=== PATIENT | female | born 1995 | race Caucasian/White ===

== ENCOUNTER → 2020-02-27 | Outpatient (CLI) | payer BC ==
[~2020-02-27] MED LIST: BCP
== END ==
LOC: COL.LAB 13:28
DX: Z20.828 Contact with and (suspected) exposure to other viral communicable diseases (principal)

== ENCOUNTER 2023-08-18 13:44 | Inpatient (IN) | payer OTHER ==
[2023-08-18] VITALS (19 sets, daily range): BP systolic 85–141; BP diastolic 42–102; PULSE 82–102; TEMP 97.9–98.4
[~2023-08-18] VITALS: Ht 162.6 cm; Wt 115.5 kg
--- NOTE | 2023-08-18 13:50 | NUR ---
PATIENT AMBULATORY TO UNIT WITH SIGNIFICANT OTHER AND MOTHER, PATIENT ORIENTED TO LABOR ROOM 4 AND ASSISTED INTO A GOWN. EFM ADN TOCO PLACED AND TRACING. PATIENT REPORTS LEAKING OF FLUID SINCE 1213, MILD CONTRACTIONS, NO VAGINAL BLEEDING AND GOOD MOVEMENT. ASSESSMENTS COMPLETE
[2023-08-18] MEDS ORDERED: LR 1,000 ML IV PRN ×2 (14:00→17:15)
[2023-08-18] MEDS ORDERED: PRENATAL (14:20)
[2023-08-18] MEDS ORDERED: UROMAG140 MG (14:20)
[2023-08-18] MEDS ORDERED: MACROBID 1100 MG/CAP PO (14:21)
[2023-08-18] MEDS ORDERED: SYNTHROID0.175 MG PO (14:21)
[2023-08-18] MEDS ORDERED: LR 1,000 ML IV SCH (14:45)
[2023-08-18] MEDS ORDERED: ceFAZolin 2 G in Water For Injection,Sterile 20 ML IV ONE (14:45)
[2023-08-18] MEDS ORDERED: Azithromycin 500 MG in NS 250 ML IV ONE (14:45)
--- NOTE | 2023-08-18 15:00 | NUR ---
TO BEDSIDE TO DISCUSS PLAN OF CARE WITH PATIENT, PATIENT AGREES. CONSENTS SIGNED AFTER PATIENT DISCUSSION WITH
[2023-08-18 15:12] LABS: BASO % 0.4 % (0.0-2.0); EOS # 0.1 K/mm3 (0.0-0.7); EOS % 1.1 % (0.0-4.0); GRAN # 8.3 K/mm3 (1.4-6.5); GRAN % 77.1 % (42.2-75.2); HEMOGLOBIN 11.7 g/dl (12.5-16.0); LYMPH # 1.5 K/mm3 (1.2-3.4); LYMPH % 13.5 % (20.0-51.0); MEAN CELL VOLUME 91 fl (80.0-100.0); MEAN CORPUSCULAR HEMOGLOBIN 30 pg (27-31); MEAN CORPUSCULAR HGB CONC 33 g/dl (33.0-37.0); MEAN PLATELET VOLUME 10.5 fl (7.4-10.4); MONO # 0.8 K/mm3 (0.1-0.6); MONO % 7.2 % (1.7-9.3); PLATELET COUNT 309 K/mm3 (130-400); RED BLOOD COUNT 3.94 M/mm3 (4.10-5.30); REDCELL DISTRIBUTION WIDTH-CV 13.9 % (11.5-14.5)
[2023-08-18] MEDS ORDERED: NS 30 ML IV ONE (15:38)
[2023-08-18] MEDS ORDERED: Oxytocin 10 UNITS/ML VIAL ONE (15:38)
[2023-08-18] MEDS ORDERED: Ketorolac 30 MG/ML VIAL ONE (15:38)
[2023-08-18] MEDS ORDERED: Ondansetron 4 MG/2 ML VIAL ONE (15:38)
[2023-08-18] MEDS ORDERED: dexAMETHasone 10 MG/ML VIAL ONE (15:38)
[2023-08-18] MEDS ORDERED: EPINEPHrine 1 MG/1 ML Ampule ONE (16:31)
[2023-08-18] MEDS ORDERED: Magnes Hydrox (MOM) 80 MG/ML 30 ML CUP PO PRN (17:00)
[2023-08-18] MEDS ORDERED: Sennosides/Docusate 8.6-50 MG TAB PO SCH (17:00)
[2023-08-18] MEDS ORDERED: Loratadine 10 MG TAB PO PRN (17:00)
[2023-08-18] MEDS ORDERED: Ondansetron 4 MG/2 ML VIAL IV PRN (17:15)
[2023-08-18] MEDS ORDERED: oxyCODONE/Acetaminophen 5-325 MG TAB PO PRN (17:15)
[2023-08-18] MEDS ORDERED: Naloxone 0.4 MG/ML VIAL IV PRN (17:15)
[2023-08-18] MEDS ORDERED: Measles/Mumps/Rubella Virus Vaccine Live w Diluent 0.5 ML VIAL SQ SCH (17:15)
[2023-08-18] MEDS ORDERED: Meperidine 50 MG/ML 1 ML VIAL IV PRN (18:00)
[2023-08-18] MEDS ORDERED: traZODone 50 MG TAB PO PRN (21:00)
[2023-08-18] MEDS ORDERED: Ibuprofen 800 MG TAB PO SCH (22:53)
[2023-08-19] VITALS: BP 111/56; PULSE 80; TEMP 98.6
--- NOTE | 2023-08-19 03:00 | NUR ---
0300 CALLS OUT AND STATES HAS BEEN CRAMPING AND FEELING LIKE GUSHING BLOOD SINCE 0130. UNABLE TO DO FUNDAL CHECK. PT GRABS HANDS AND JERKS AWAY. UP TO BR WITH ASSIST AND [place] DCD. 1100 CC URINE IN BAG. BECAME LIGHT HEADED AND DIZZY ON TOILET. TO BED PER BENJAMIN STEADY. QBL 248. C/O CRAMPING OFF AND ON AND UNABLE TO REST. 0330 DR YODER NOTIFIED OF CRAMPING AND QBL. ORDERS RECEIVED. 0350 LAB HERE TO DRAW BLOOD. MORPHINE 2 MG IV GIVEN AND METHERGINE 0.2 MG PO GIVEN. 0430 CALLED OUT AND STATES FEELS LIKE SHE IS GUSHING BLOOD AGAIN. PAD CHANGED. QBL 50. PERCOCET 2 PO GIVEN FOR SOME CRAMPING.
[2023-08-19] MEDS ORDERED: Morphine 4 MG/ML VIAL IV PRN (03:45)
[2023-08-19] MEDS ORDERED: Methylergonovine 0.2 MG TAB PO ONE (03:45)
[2023-08-19 03:50] VITALS: BP 112/69; PULSE 88; TEMP 98.1
[2023-08-19 03:52] LABS: HEMATOCRIT 29.9 % (37.0-47.0); HEMOGLOBIN 9.8 g/dl (12.5-16.0)
[2023-08-19] MEDS ORDERED: Rho(D) Imm Globulin 1,500 UNITS (300 MCG)/2 ML SYRINGE IV\\IM SCH (05:45)
[2023-08-19] MEDS ORDERED: Tranexamic Acid 1,000 MG in NS 100 ML IV ONE (06:00)
--- NOTE | 2023-08-19 07:09 | NUR ---
0615 RN X2 BEDSIDE ASSISTING PT TO BATHROOM ON [id number].
[2023-08-19 09:30] VITALS: BP 122/63; PULSE 58; TEMP 98.1
[2023-08-19] MEDS ORDERED: Methylergonovine 0.2 MG TAB PO SCH (10:00)
--- NOTE | 2023-08-19 12:35 | NUR ---
3700 RN DISCUSSES PLAN FOR PT TO AMBULATE IN HALLWAY LATER TODAY, RN DISCUSSES THE BENEFITS OF PT GETTING UP AND MOVING. PT VERBALIZES UNDERSTANDING AND AGREES TO PLAN
--- NOTE | 2023-08-19 14:16 | NUR ---
1400 GOLFBALL SIZED CLOT IN TOILET. NO ACTIVE BLEEDING NOTED. PT NOT ALLOWING RN TO PERFORM FUNDAL MASSAGE
[2023-08-19 16:06] VITALS: BP 102/64; PULSE 60; TEMP 98.1
[2023-08-19 19:45] VITALS: BP 113/72; PULSE 87; TEMP 98.2
[2023-08-20 07:19] VITALS: BP 110/57; PULSE 81; TEMP 97.9
[2023-08-20] MEDS ORDERED: PERCOCET 325 MG1 TA2 PO (07:31)
[2023-08-20] MEDS ORDERED: MOTRIN 800800 MG/TAB PO (07:31)
== END 2023-08-20 16:55 | disposition home or self-care (01) | DRG 787 ==
LOC: LDRO 13:44 → OB 13:50 → LDR 13:50 → OB 17:12
PROVIDERS: Obstetrics & Gynecology; ADMIT Obstetrics & Gynecology
PROC: 10D00Z1 Extraction of Products of Conception, Low, Open Approach (ICD-10-PCS; principal; 2023-08-18)
DX: O34.211 Maternal care for low transverse scar from previous cesarean delivery (principal); N39.0 Urinary tract infection, site not specified; O72.1 Other immediate postpartum hemorrhage; O23.43 Unspecified infection of urinary tract in pregnancy, third trimester; O90.81 Anemia of the puerperium; O99.214 Obesity complicating childbirth; O42.913 Preterm premature rupture of membranes, unspecified as to length of time between rupture and onset of labor, third trimester; O99.284 Endocrine, nutritional and metabolic diseases complicating childbirth; E03.9 Hypothyroidism, unspecified; Z3A.36 36 weeks gestation of pregnancy; Z37.0 Single live birth
CPT/HCPCS: J0171; J0456; J0665; J0690; J1100; J1885; J2175; J2270; J2405; J2590; J2791; J7050; J7120